=== PATIENT | female | born 1940 | race Caucasian/White ===

== ENCOUNTER 2023-07-17 06:52 | Day surgery (SDC) | payer MEDICARE ==
[~2023-07-17] VITALS: Ht 139.7 cm; Wt 101.3 kg
[~2023-07-17 06:52] MED LIST: ALPR0.5T3 PO; AMLO2.5T3 PO; BSS IRR 500ML/OMIDRIA 4ML IRR BAG (OR ONLY) As Ordered ONE; CEFUROXIME 1MG/0.1ML INTRACAMERAL INJ As Ordered ONE; ELIQ5TAB PO; HYDR12.55 PO; LIDOCAINE 1% SDV 5ML VIAL As Ordered ONE; LOSA50TA28 PO; PROPARACAINE 0.5% OPHTH SOL 15ML OD ONE; SOTA80TA2 PO
[2023-07-17] MEDS: CYCLOPENTOLATE 1% OPHTH SOLN 2ML BTL OD SCH ×2 (07:19→07:34)
[2023-07-17] MEDS: PHENYLEPHRINE 2.5% OPHTH SOL 2ML OD SCH ×2 (07:19→07:34)
[2023-07-17] MEDS: OFLOXACIN 0.3 % (OCUFLOX) OPTH SOL 5ML OD SCH ×2 (07:20→07:34)
[2023-07-17] MEDS: TROPICAMIDE 1% OPHTH SOLN 15ML OD SCH ×3 (07:20→07:34)
[2023-07-17] MEDS ORDERED: MIDAZOLAM INJ 2MG/2ML VIAL As Ordered ONE (07:54)
[2023-07-17 08:15] VITALS: BP 168/73; TEMP 97.9; O2SAT 94
== END 2023-07-17 08:33 | disposition home or self-care (01) ==
LOC: M SDC 06:52
PROVIDERS: ATTEND Ophthalmology
DX: H25.11 Age-related nuclear cataract, right eye (principal); I48.91 Unspecified atrial fibrillation; I10 Essential (primary) hypertension; E78.5 Hyperlipidemia, unspecified; Z87.891 Personal history of nicotine dependence; Z79.01 Long term (current) use of anticoagulants; Z79.899 Other long term (current) drug therapy; Z88.8 Allergy status to other drugs, medicaments and biological substances; Z88.5 Allergy status to narcotic agent
CPT/HCPCS: 66984; J0697; J1097; J2250; V2632

== ENCOUNTER 2023-09-11 06:38 | Day surgery (SDC) | payer MEDICARE ==
[~2023-09-11] VITALS: Ht 129.5 cm; Wt 101.3 kg
[~2023-09-11 06:38] MED LIST changes: -BSS IRR 500ML/OMIDRIA 4ML IRR BAG (OR ONLY) As Ordered ONE; -CEFUROXIME 1MG/0.1ML INTRACAMERAL INJ As Ordered ONE; -LIDOCAINE 1% SDV 5ML VIAL As Ordered ONE; -PROPARACAINE 0.5% OPHTH SOL 15ML OD ONE
[2023-09-11] MEDS: TROPICAMIDE 1% OPHTH SOLN 15ML OS SCH (07:09)
[2023-09-11] MEDS: OFLOXACIN 0.3 % (OCUFLOX) OPTH SOL 5ML OS SCH (07:10)
[2023-09-11] MEDS: CYCLOPENTOLATE 1% OPHTH SOLN 2ML BTL OS SCH (07:10)
[2023-09-11] MEDS: PROPARACAINE 0.5% OPHTH SOL 15ML OS ONE (07:10)
[2023-09-11] MEDS: PHENYLEPHRINE 2.5% OPHTH SOL 2ML OS SCH (07:10)
[2023-09-11] MEDS: LIDOCAINE 1% SDV 5ML VIAL As Ordered ONE (08:15)
[2023-09-11] MEDS: BSS IRR 500ML/OMIDRIA 4ML IRR BAG (OR ONLY) As Ordered ONE (08:17)
[2023-09-11] MEDS: CEFUROXIME 1MG/0.1ML INTRACAMERAL INJ As Ordered ONE (08:17)
[2023-09-11 08:27] VITALS: BP 148/67; TEMP 98.2; O2SAT 97
== END 2023-09-11 08:58 | disposition home or self-care (01) ==
LOC: M SDC 06:38
PROVIDERS: ATTEND Ophthalmology
DX: H25.12 Age-related nuclear cataract, left eye (principal); I10 Essential (primary) hypertension; E11.9 Type 2 diabetes mellitus without complications; E78.5 Hyperlipidemia, unspecified; I48.91 Unspecified atrial fibrillation; Z85.3 Personal history of malignant neoplasm of breast; Z79.01 Long term (current) use of anticoagulants; Z79.899 Other long term (current) drug therapy; Z88.2 Allergy status to sulfonamides; Z88.8 Allergy status to other drugs, medicaments and biological substances; Z88.5 Allergy status to narcotic agent
CPT/HCPCS: 66984; J0697; J1097; V2632